=== PATIENT | male | born 1945 | race Caucasian/White ===

== ENCOUNTER → 2016-10-21 | Outpatient (CLI) | payer MEDICARE ==
[2016-10-21 16:01] LABS: BUN 19 mg/dL (7-18); GFR (ESTIMATED) 74 ML/MIN (>60); PROSTATE-SPECIFIC AG SCREEEN 0.6 ng/mL (0.0-4.0)
== END ==
LOC: CARL-LAB 08:02
PROVIDERS: Nurse Practitioner Family
DX: I10 Essential (primary) hypertension (principal); E78.2 Mixed hyperlipidemia; Z12.5 Encounter for screening for malignant neoplasm of prostate
CPT/HCPCS: G0103

== ENCOUNTER 2017-02-11 12:56 | Observation (INO) | payer MEDICARE ==
[~2017-02-11] VITALS: Ht 182.9 cm; Wt 114.8 kg
[2017-02-11 12:57] VITALS: BP 164/87
--- NOTE | 2017-02-11 13:12 | Emergency Room Report ---
See Addendum History of Present Illness Time Seen by 130Landry Presenting Problem in Triage Pt arrived:Walked Presenting Problem:CHEST PAIN BEGAN LAST NIGHT Onset of symptoms date/time:/ or onset unknown for:MEDICAL HX UNKNOWN Treatment Prior to Arrival: DISPLAY MANAGER Provided by: Sepsis Risk Assessment: Temp: 97.9 B/P: 164/87 MAP: 112 Pulse: 70 Resp: 18 Recent fever? N Clinical Suspician of Infection? N Mental Status: 1 - Regular (Normal Baseline) Sepsis Risk:Low Sepsis Risk Have you (or family members/close friends) recently traveled outside the [place]? N If Yes, where/when: Have you had exposure to infectious disease within the past month? N TB? Other? Specify: 8 years old white male with history of seasonal ALLERGY has been experiencing chest discomfort since yesterday. It is worse with movement and coughing. He denies having chest pressure. He denies palpitations. His cough is unproductive. He has no nausea vomiting or diarrhea looks in no acute distress. Was brought by the family for evaluation stating that he has history of hypertension. He underwent negative cardiac workup 20 years ago. Source patient, RN notes reviewed, family Exam Limitations no limitations ALLERGIES Coded Allergies: No Known Allergies (02/11/17) History Medical History General CAD? No Angina: No PA: No Hypertension? Yes Hyperlipidemia? Yes CHF? No DVT? No PE? No COPD? No Asthma? No Anemia? No GERD? No Gastric ulcers? No GI Bleed? No Hernia? No Thyroid Problems? No Hypothyroidism? No CVA? No Seizures? No Diabetes? No End Stage Renal Disease? No UTI? No Stones? No BPH? No GB Disease: No Nephritic Syndrome? No Asplenia? No Hepatitis? No Sickle Cell Disease? No Arthritis? No Migraines? No Cataracts? No Glaucoma? No MRSA? No HIV? No TB? No Anxiety? No Depression? No Cancer? No More? Yes Additional hx: BPH Immunization Hx DT/Tetanus Unknown Surgical Hx Previous Surgery?Y Hernia Repair Social History Smoking Hx Smoker: Former Smoker Tobacco: No Type Cigarettes Alcohol Alcohol: No Review of Systems All Other Systems Reviewed and Negative Constitutional no symptoms reported Eyes no symptoms reported ENT no symptoms reported. Respiratory see HPI, shortness of breath Cardiovascular no symptoms reported, see HPI Gastrointestinal no symptoms reported Genitourinary no symptoms reported. Musculoskeletal no symptoms reported Skin no symptoms reported Psychiatric/Neurological no symptoms reported Physical Exam Vital Signs Vital Signs Date Time Temp Pulse Resp B/P Pulse O2 O2 Flow FiO2 Ox Delivery Rate 02/11 1408 97.9 70 18 125/79 95 02/11 1403 70 18 95 02/11 1257 97.9 70 18 164/87 95 - WBC >12,000 or <4,000 or 10% bands? 2 or more SIRS Criteria Met? B/P:164/87 MAP:112 Creatinine >2.0? UA output<0.5ml/kg/hr for 2 hrs? Platelet count >100,000? Lactate >2.0mmol/1? INR >1.2 or PTT > than 60 sec? Evidence of Organ Dysfunction? Provider documented clinical suspician of infection? N Sepsis Criteria Count: 0 Sepsis Risk: Low Sepsis Risk General Appearance normal appearance, WD/WN, active Eye Exam - bilateral eye normal exam, bilateral eye PERRL, bilateral eye EOMI Ear, Nose, Throat hearing grossly normal, normal ENT inspection Neck normal inspection, non-tender, supple, full range of motion Respiratory Status Yes: trachea midline, chest symmetrical, non tender chest. No: respiratory distress. Lung Sounds bilateral: normal breath sounds, lungs clear. Cardiovascular normal exam, regular rate/rhythm, no peripheral edema, no gallop, no JVD, no murmur, no rub, normal peripheral pulses Gastrointestinal normal bowel sounds, normal exam, non tender, soft, no organomegaly Back normal inspection, no CVA tenderness, no vertebral tenderness Extremities non-tender, normal range of motion, normal inspection Neurologic alert, manufacturing intern II-XII nml as tested, normal exam, oriented x 3 Reflexes Reflexes normal Yes Mental status normal mood/affect Skin intact, normal color, warm/dry Medical Decision Making LABS/Meds/Orders Pt receiving controlled substance in ED? No Results/Orders Laboratory Tests 02/11/17 1507: Troponin I < 0.02 02/11/17 1305: Sodium 134 L, Potassium 3.9, Chloride 98, Carbon Dioxide 30, BUN 22 H, Creatinine 1.0, Estimated Creat Clear 110, Estimated GFR (MDRD) 74, Glucose 128 H, Calcium 8.8, Total Bilirubin 0.4, AST 12 L, ALT 26, Alkaline Phosphatase 89, Creatine Kinase 93, CK-MB (CK-2) Rel Index 0.8, CK and CKMB Interp 0.7, Troponin I < 0.02, B-Natriuretic Peptide 16, Total Protein 7.2, Albumin 3.6, Globulin 3.6 H, Albumin/Globulin Ratio 1.0 L, D-Dimer 105, WBC 7.3, RBC 5.04, Hgb 15.5, Hct 47.1, MCV 93.4, RDW 14.5, Plt Count 213, Gran % 76.9, Gran # 5.6, Lymphocytes % 18.5, Monocytes % 4.6, Lymphocytes # 1.4, Monocytes # 0.3, PUBS MCHC 32.9, MCH 30.8 Current Medication Orders Sig/Nancy Start time Last Medication Dose Route Stop Time Status Admin Multi-Ingredient GI 0 .STK-MED ONE 02/11 1522 DC Drug PO Pantoprazole Sodium 0 .STK-MED ONE 02/11 1522 DC IV Multi-Ingredient GI 60 ML ONCE ONE 02/11 1500 DC 02/11 Drug PO 02/11 1501 1529 Pantoprazole Sodium 40 MG ONCE ONE 02/11 1500 DC 02/11 IV 02/11 1501 1529 Sodium Chloride 10 ML ONCE ONE 02/11 1500 DC IV 02/11 1501 Aspirin 324 MG ONCE ONE 02/11 1330 CAN PO 02/11 1331 Nitroglycerin 0.4 MG ONCE ONE 02/11 1330 DC 02/11 PO 02/11 1331 1334 Nitroglycerin 0 .STK-MED ONE 02/11 1327 DC SL Albuterol/Ipratropium 3 ML ONCE ONE 02/11 1315 DC INH 02/11 1316 Sodium Chloride 10 ML PRN PRN 02/11 1315 AC IV 02/12 1304 Albuterol/Ipratropium 0 .STK-MED ONE 02/11 1313 DC INH Orders Procedure Date/time Status DIET-NOTHING BY MOUTH 02/11 D Active Decision to admit 02/11 1535 Active TROPONIN I 02/[address] HEAD REQ 02/11 1350 Complete RT Aerosol Treatment, Provide 02/11 1319 Active ELECTROCARDIOGRAM REQUEST 02/11 1305 Active RT REQUEST DUONEB 02/11 1305 Active IV SALINE LOCK 02/11 1305 Active D-DIMER 02/11 1305 Complete CBC WITH AUTO DIFF 02/11 1305 Complete CARDIAC ENZYMES 02/11 1305 Complete CHEM 12 PROFILE 02/11 1305 Complete BRAIN NATRIURETIC PEPTIDE 02/11 1305 Complete 12 LEAD EKG-SARAH (INITIAL) 02/[address] HEAD W/O CONTRAST 02/11 UNK Active CM/EKG CM/EKG EKG rate, NSR, rhythm, no evid. of ischemic chgs, no ectopy, normal QRS, normal MA, normal EKG Comments Normal sinus rhythm 70/m normal MA QRS and Q waves no acute findings. Departure Departure Time of Disposition 153 Disposition Still a Patient Clinical Impression Primary Impression: Atypical chest pain Secondary Impressions: Hypertension, Unstable angina Condition STABLE Referrals Garry Smith MD (Family) Additional Instructions i DISCUSSED WITH THE PATIETN ABOUT HIS NEGATIVE LABS BUT HE CONTINUE TO HAVE SX DESPITE OF DUONEB, NITROGLYCERIN AND GI COCKTAIL. i CALLED IRENE DR SMITH SECURITIES COUNSELOR AND WE AGEED TO KEEP HIM FOR R.O AND GB US IN AM. DR. PALM Discharge Counseling Counseled pt/family regarding diagnosis, test results, medications/RX, home care, follow up needs ED Critical Care Critical Care No If Critical Care minutes are documented, the time involved in the performance of seperately reportable procedures was not counted toward critical care time documented. I directly delivered medical care to this critically ill and/or injured patient. Timely evaluation and treatment was necessary to address the significant organ system(s) dysfunction present in this patient. at 1534
[2017-02-11 13:15] LABS: HEMOGLOBIN 15.5 g/dL (14.1-18.0)
[2017-02-11 13:16] LABS: LYMPH # 1.4 K/mm3 (0.7-4.5); LYMPH % 18.5 % (10-50)
[2017-02-11 13:40] LABS: BUN 22 mg/dL (7-18); GFR (ESTIMATED) 74 ML/MIN (>60)
--- NOTE | 2017-02-11 14:04 | RADIOLOGY REPORT PS360 ---
CHEST(2 VIEWS-NOT PORTABLE) HISTORY: Chest pain PAIN ORDERING PHYSICIAN: León Palm MD PATIENT AGE: 71 years COMPARISON: None available FINDINGS: Unremarkable heart size. The right hilum is prominent. Cannot exclude hilar mass. Chest CT with contrast may be of further value.. There is minimal density noted in the left lung base laterally nonspecific and may be due to chronic pleural thickening. No lobar consolidation or collapse is evident. No acute bony anomalies. IMPRESSION: 1. Possible right hilar mass. Suggest chest CT with contrast for further evaluation. 2. Probable chronic changes left lung base.
--- NOTE | 2017-02-11 15:00 | RADIOLOGY REPORT PS360 ---
CT HEAD W/O CONTRAST HISTORY: Facial numbness PAIN ORDERING PHYSICIAN: León Palm MD PATIENT AGE: 71 years COMPARISON: None TECHNIQUE: Axial images obtained without contrast. Brain and bone windows reviewed. FINDINGS: No midline shift, mass effect, intracranial hemorrhage, hydrocephalus, or extra-axial fluid collection is evident. There is some nonspecific hypoattenuation in periventricular white matter consistent with ischemic gliotic change from microvascular disease The calvarium has an unremarkable appearance. No mastoid effusion. The visualized paranasal sinuses are unremarkable. IMPRESSION: NO ACUTE INTRACRANIAL FINDINGS
[2017-02-11 17:32] VITALS: BP 139/86
[2017-02-11 17:47] VITALS: BP 139/86
[2017-02-11] MEDS ORDERED: CLARITIN 10MG T10 MG PO (17:59)
[2017-02-11] MEDS ORDERED: LISINOPRIL/HCTZ1 TA3 FT (17:59)
[2017-02-11] MEDS ORDERED: FLONASE 50 MCG16 GM (18:00)
[2017-02-11] MEDS ORDERED: TAMSULOSIN HYD0.4 MG PO (18:00)
[2017-02-11] MEDS ORDERED: COREG25 MG PO (18:01)
[2017-02-11] MEDS ORDERED: SINGULAIR 10 MG10 MG PO (18:01)
[2017-02-11 20:00] VITALS: BP 140/79
[2017-02-11 20:45] VITALS: BP 140/79
[2017-02-11 23:58] VITALS: BP 136/76
[2017-02-12 04:24] VITALS: BP 129/85
--- NOTE | 2017-02-12 07:41 | PHARMACY CLINIC NOTE ---
Patient Demographics Patient Demographics Admission date: 02/11/17 Date: 02/12/17 Time: 0740 Allergies Coded Allergies: No Known Allergies (02/11/17) HEIGHT- FT: 6 IN: 0.00 K.760 VTE General Information Labs: Laboratory Tests 02/11 1305 Hematology Hgb (14.1 - 18.0 g/dL) 15.5 Hct (42.0 - 52.0 %) 47.1 Plt Count (142 - 424 K/mm3) 213 Disclaimer The following section includes nursing documentation that has been pulled in for pharmacy review. Patient's VTE score: 2 Patient's VTE Risk: VERY LOW RISK Clinical trial participant? No VTE prophylaxis [id number] VTE prophylaxis ordered? Yes Type of prophylaxis/treatment: RENE at 0740
[2017-02-12 08:30] VITALS: BP 159/80
--- NOTE | 2017-02-12 08:38 | CONSULT NOTE ---
See Addendum Standard Demographics Patient Demo Date of Consultation: 02/12/17 Referring Provider: Garry Mcneil MD Reason for Consultation: Chest pain with concern for unstable angina PRIMARY DIAGNOSIS: UNSTABLE ANGINA Problem list Problem list: 1. Hypertension, treated for 20-25 years 2. Family history of heart disease with mother having coronary artery bypass grafting at age 60 and uncles on his mother's having bypass in their late 40s or early 50s. 3. Strong family history of pancreatic cancer in father, brother and sister History of present illness: History of present illness: 71-year-old white male with history of hypertension presented to the emergency department for evaluation of abdominal/chest pain. Symptoms started evening of and were intermittent throughout the night and the next day. At the and granddaughter's insistence, patient came in for evaluation. Symptoms described as a substernal discomfort in the lower part of the sternum without radiation to back, neck or shoulder that is aggravated by cough, sneezing and movement. Mild improvement with nitroglycerin sublingual. Troponins normal 3 overnight. Electrocardiogram is sinus with nonspecific ST-T wave abnormalities. Cardiology consulted for evaluation and recommendations. Past Medical History: General: Hypertension Yes CVA No Seizures No TB No COPD No Asthma No Diabetes No Angina No OH No Hyperlipidemia No Cancer No MRSA No GB Disease No Additional hx BPH Past Surgical HX: Previous Surgery?Y Hernia Repair Allergies Coded Allergies: No Known Allergies (02/11/17) Home medications: Reported Medications Loratadine (Claritin 10MG) 10 MG PO DAILY Lisinopril & Hctz (Lisinopril-Hctz 10-12.5 MG Tab) 1 TAB FT DAILY Fluticasone Propionate (Flonase 50 Mcg Nasal [place]) 1 SPRAY NA BID TAMSULOSIN HCL (Tamsulosin 0.4MG) 0.4 MG PO QHS Carvedilol (Coreg 25MG) 25 MG PO BID Montelukast Sodium (Singulair 10MG) 10 MG PO DAILY Current Medications: Current Medications Acetaminophen 0 .STK-MED ONE PO (DC) Acetaminophen 650 MG Q4HP PRN PO Pantoprazole Sodium 40 MG QHS IV Nitroglycerin 0 .STK-MED ONE .ROUTE (DC) Enoxaparin Sodium 0 .STK-MED ONE SC (DC) Nitroglycerin 0.5 IN Q6 TP Sodium Chloride 10 ML PRN PRN IV Aspirin 325 MG DAILY PO Enoxaparin Sodium 40 MG DAILY SC Multi-Ingredient GI Drug 0 .STK-MED ONE PO (DC) Pantoprazole Sodium 0 .STK-MED ONE IV (DC) Multi-Ingredient GI Drug 60 ML ONCE ONE PO (DC) Pantoprazole Sodium 40 MG ONCE ONE IV (DC) Sodium Chloride 10 ML ONCE ONE IV (DC) Aspirin 324 MG ONCE ONE PO (CAN) Nitroglycerin 0.4 MG ONCE ONE PO (DC) Nitroglycerin 0 .STK-MED ONE SL (DC) Albuterol/Ipratropium 3 ML ONCE ONE INH (DC) Sodium Chloride 10 ML PRN PRN IV Albuterol/Ipratropium 0 .STK-MED ONE INH (DC) Immunization HX DT/Tetanus Unknown Pneumonia RECEIVED IN PAST TB Test in last year No Family history Family HX Family Hx Insignificant No Social Hx: Smoking HX Tobacco No Type Cigarettes Packs/day N/A Are you/the child exposed to second-hand smoke: No Alcohol Alcohol: No Hx of Drug Use Drug Use? No Patien't marital status is Patient's support system is good Review of systems: Constitutional No: no symptoms reported. Respiratory No: no symptoms reported. Cardiovascular see HPI, chest pain Gastrointestinal/Abdominal No no symptoms reported Genitourinary frequency. Musculoskeletal No: no symptoms reported. Neurological No: no symptoms reported. Exam: Admission Vital Signs: 1ST Vital Signs Result Date Time Pulse Ox 95 02/11 1257 B/P 164/87 02/11 1257 Temp 97.9 02/11 1257 Pulse 70 02/11 1257 Resp 18 02/11 1257 O2 Delivery ROOM AIR 02/11 1732 Last Vital Signs: Vital Signs Result Date Time Pulse Ox 92 02/13 424 B/P 129/85 02/13 424 O2 Delivery ROOM AIR 02/13 424 Temp 98.0 02/13 424 Pulse 68 02/13 424 Resp 18 02/13 424 Exam General appearance: alert, awake, no acute distress Neck: no carotid bruit, no JVD Cardiovascular: regular rate & rhythm, no murmur Respiratory: clear to auscultation, good air movement ABD: soft, no tenderness Extremities: moves all, no peripheral edema Neuro: alert, intact, oriented Laboratory data: Laboratory Tests 02/11/17 2103: Troponin I < 0.02 02/11/17 1507: Troponin I < 0.02 02/11/17 1305: Sodium 134 L, Potassium 3.9, Chloride 98, Carbon Dioxide 30, BUN 22 H, Creatinine 1.0, Estimated Creat Clear 110, Estimated GFR (MDRD) 74, Glucose 128 H, Calcium 8.8, Total Bilirubin 0.4, AST 12 L, ALT 26, Alkaline Phosphatase 89, Creatine Kinase 93, CK-MB (CK-2) Rel Index 0.8, CK and CKMB Interp 0.7, Troponin I < 0.02, B-Natriuretic Peptide 16, Total Protein 7.2, Albumin 3.6, Globulin 3.6 H, Albumin/Globulin Ratio 1.0 L, D-Dimer 105, WBC 7.3, RBC 5.04, Hgb 15.5, Hct 47.1, MCV 93.4, RDW 14.5, Plt Count 213, Gran % 76.9, Gran # 5.6, Lymphocytes % 18.5, Monocytes % 4.6, Lymphocytes # 1.4, Monocytes # 0.3, PUBS MCHC 32.9, MCH 30.8 Plan: Assessment: 1. Chest pain with atypical features. Patient does have risk factors including hypertension, family history and male over the age of 40. Troponins normal 3, electrocardiogram sinus and unremarkable. Would recommend obtaining an echocardiogram today to evaluate for LEFT ventricular size and function. If normal, then patient could be discharged home for outpatient stress test. 2. Hypertension Recommendations: See above. at 1420
--- NOTE | 2017-02-12 11:08 | RADIOLOGY REPORT PS360 ---
US GALLBLADDER (ABD LTD) COMPARISON: None HISTORY: Chest pain and epigastric pain TECHNIQUE: Targeted ultrasound right upper quadrant FINDINGS: The liver is normal size and show scattered areas of increased echogenicity consistent with fatty infiltration. The pancreas is grossly normal. The gallbladder is normal in size and shows no definite gallstones or biliary sludge. The common bile duct is normal caliber. The right kidney measures 10.5 x 6.0 x 6.4 cm and shows a good cortical medullary junction with no hydronephrosis or other abnormality. IMPRESSION: Scattered areas of fatty liver otherwise unremarkable study
[2017-02-12 12:00] VITALS: BP 153/79
[2017-02-12] MEDS ORDERED: THE MEDICINE SH20 M1 PO (13:32)
--- NOTE | 2017-02-12 13:37 | Discharge Summary Standard ---
Demographics: Admit date: 02/11/17 Chief complaint: Abdominal/epigastric pain PRIMARY DIAGNOSIS: UNSTABLE ANGINA Allergies: Coded Allergies: No Known Allergies (02/11/17) History of present illness: History of present illness: 71-year-old white male with history of hypertension presented to the emergency department for evaluation of abdominal/chest pain. Symptoms started evening of and were intermittent throughout the night and the next day. At the and granddaughter's insistence, patient came in for evaluation. Symptoms described as a substernal discomfort in the lower part of the sternum without radiation to back, neck or shoulder that is aggravated by cough, sneezing and movement. Mild improvement with nitroglycerin sublingual. Troponins normal 3 overnight. Electrocardiogram is sinus with nonspecific ST-T wave abnormalities. Cardiology consulted for evaluation and recommendations. Patient noted that symptoms were related to food. CT scans in ER unremarkable the Past medical history: Family HX Family Hx Insignificant Yes Immunization HX DT/Tetanus Unknown Pneumonia Received In Past TB Test in last year No General CAD? No Angina: No ME: No Hypertension? Yes Hyperlipidemia? No CHF? No DVT? No PE? No COPD? No Asthma? No Anemia? No GERD? No Gastric ulcers? No GI Bleed? No Hernia? No Thyroid Problems? No Hypothyroidism? No CVA? No Seizures? No Diabetes? No UTI? No Stones? No BPH? Yes GB Disease: No Nephritic Syndrome? No Asplenia? No Hepatitis? No Sickle Cell Disease? No Arthritis? No Migraines? No Cataracts? No Glaucoma? No MRSA? No HIV? No TB? No Anxiety? No Depression? No Cancer? No More? Yes Additional hx: BPH Past Surgical HX Previous Surgery?Y Hernia Repair Current home meds: Reported Medications Loratadine (Claritin 10MG) 10 MG PO DAILY Lisinopril & Hctz (Lisinopril-Hctz 10-12.5 MG Tab) 1 TAB FT DAILY Fluticasone Propionate (Flonase 50 Mcg Nasal [place]) 1 SPRAY NA BID TAMSULOSIN HCL (Tamsulosin 0.4MG) 0.4 MG PO QHS Carvedilol (Coreg 25MG) 25 MG PO BID Montelukast Sodium (Singulair 10MG) 10 MG PO DAILY Social Hx: Smoking HX Tobacco No Type Cigarettes Packs/day N/A Are you/the child exposed to second-hand smoke: No Alcohol Alcohol: No Hx of Drug Use Drug Use? No Patien't marital status is Patient's support system is excellent Review of systems: Constitutional malaise, weakness. No: fever. Respiratory No: no symptoms reported. Cardiovascular see HPI Gastrointestinal/Abdominal see HPI Genitourinary No: no symptoms reported. Musculoskeletal No: no symptoms reported. Neurological No: see HPI. Exam: Lab data for last 24 hours: Laboratory Tests 02/11/17 2103: Troponin I < 0.02 02/11/17 1507: Troponin I < 0.02 Admission vital signs: 1ST Vital Signs Result Date Time Pulse Ox 95 02/11 1257 B/P 164/87 02/11 1257 Temp 97.9 02/11 1257 Pulse 70 02/11 1257 Resp 18 02/11 1257 O2 Delivery ROOM AIR 02/11 1732 Exam General appearance: normal appearance, alert, awake Eyes: normal exam, anicteric ENT: normal exam, mucous membranes moist Neck: normal inspection, non-tender, no carotid bruit, no JVD Cardiovascular: normal exam Respiratory: normal exam, clear to auscultation ABD: normal exam, non-distended, normal bowel sounds Genitourinary: normal voiding & quantity Extremities: normal exam Musculoskeletal: normal exam Skin: normal exam, intact, normal color Neuro: normal exam, alert, no deficit Hospital Course Hospital Course: Patient was admitted, myocardial infarction was ruled out by enzyme and EKG criteria. He is noted to have a baseline abnormal EKG with left axis deviation and poor R-wave progression. Because of the right upper quadrant tenderness on the initial exam in the ER ultrasound was ordered of the gallbladder which was unremarkable. Patient has felt well through the day today, echocardiogram has been reviewed and preliminary reports are not concerning for LV dysfunction. Plan to discharge him home. Outpatient stress test set up. Start proton pump inhibitor for the epigastric pain. Close followup as scheduled in my office. Medications Medications: Discharge meds are as noted. Follow up Follow up in office in: 10 DAYS with: Garry Mcneil MD at [id number]
[2017-02-12 14:20] VITALS: BP 153/79
--- NOTE | 2017-02-12 15:38 | RADIOLOGY REPORT PS360 ---
PROCEDURE: 2-D M-mode and color Doppler study INDICATIONS FOR THE TEST: Chest pain X COPD Heart Murmur Tobacco Smoking Palpitations Fatigue Syncope Edema HypertensionXDiabetes Mellitus Rheumatic Fever SOB MORAN Obesity Hyperlipidemia Family History HD Additional History PATIENT INFORMATION HEIGHT: 72 WEIGHT:253 GENDER: Male B/P:164/87 2-D/M-MODE INTERPRETATION: 2-D MEASUREMENTS OBSERVED VALUES IN CMS Right Ventricular Dimension (RVDd) 3.3 Interventricular Septum (Thickness)(IVsd) 1.2 Left Ventricular Internal Dimensions(LVIDd) 5.0 Left Ventricular Posterior Wall (Thickness)(LVPWd) 1.2 Aortic Root 3.7 Aortic Cusp Separation 2.0 Left Atrial Dimensions (LAD) 3.8 2D 1. Left atrium is mildly enlarged, left ventricle is normal size, visually estimated ejection fraction 55% with no obvious regional wall motion abnormality, endocardial surfaces are somewhat poorly visualized, there is mild concentric left ventricular hypertrophy present. 2. The right atrium and right ventricle are mildly enlarged with normal contractility. 3. The aortic valve is minimally thickened and calcified. 4. The mitral and tricuspid valve leaflets are minimally thickened. 5. The pulmonic valve is poorly visualized. 3. No significant pericardial effusion noted. DOPPLER INTERROGATION: Doppler interrogation of the aortic, mitral and tricuspid valvular presence of mild mitral and tricuspid regurgitation, mild aortic insufficiency also seen. Calculated right ventricular systolic pressure 49 mmHg consistent with moderate pulmonary hypertension, grade 1 diastolic dysfunction seen without tissue Doppler evidence of raised left atrial pressure. CONCLUSION: 1. Mildly enlarged left atrium, normal left ventricular size, visually estimated ejection fraction 55% with no obvious regional wall motion abnormality, mild concentric left ventricular hypertrophy seen, endocardial surfaces are somewhat poorly visualized, grade 1 diastolic dysfunction seen without tissue Doppler evidence of raised left atrial pressure. 2. Mild aortic, mild mitral and tricuspid regurgitation. 3. No significant pericardial effusion noted.
--- OUTSIDE RECORDS SUMMARY | 2017-03-09 07:37 | External Medical Summary Rpt ---
Author Author EVY Address Unknown Phone [email or web address] Purpose Continuity of Care Document - 10-21-2016 through 2016 Problems Code Diagnosis DOS Provider Status I10 ESSENTIAL (PRIMARY) HYPERTENSIO N I20.0 UNSTABLE ANGINA R07.89 OTHER CHEST PAIN
--- OUTSIDE RECORDS SUMMARY | 2017-03-09 07:37 | External Medical Summary Rpt ---
Demographics Preferred Language Portuguese Marital Status Unknown Buddhist Affiliation Unknown Race Unknown Ethnic Group Unknown Author EVY Mohan Address Unknown Phone Immunization No patient found.
--- OUTSIDE RECORDS SUMMARY | 2017-03-09 07:37 | External Medical Summary Rpt ---
Author Author [employer] Organization [employer] Address Unknown Phone Unavailable Purpose Continuity of Care Document - through 2016
--- OUTSIDE RECORDS SUMMARY | 2017-03-09 07:37 | External Medical Summary Rpt ---
Author Author [facility] Magallanes, [employer] Organization [employer] Address Unknown Phone Unavailable Results Fibrin D-dimer FEU [Mass/volume] in Platelet poor plasma Observa Value Referen Units Interpr Notes Date tion ce etation Range Fibrin 0 - 400 ng/mL Normal The Sep 14 D-dimer D-Dimer 2017 1:05 FEU values PM [Mass/vol are ume] in presented Platelet in units poor of plasma mass(ng/m L) ofD-Dimer units(DDU ).This test has been FDA approved as an aid in the assessmen tand evaluatio n of suspected DIC, and thromboem bolic eventsinc luding PE and DVT. However, it does not have approvalf or cut-off values for the exclusion of these condition s. CBC W Auto Differential panel in Blood Observa Value Referen Units Interpr Notes Date tion ce etation Range Granulocy 1.3 - 8.0 K/mm3 Normal No Sep 14 jorje informati 2017 1:05 [#/volume on in PM ] in source Blood by data Automated count Granulocy 37.0 - % Normal No Sep 14 jorje/100 80.0 informati 2017 1:05 leukocyte on in PM s in source Blood by data Automated count Hematocri 42.0 - % Normal No Sep 14 t [Volume 52.0 informati 2017 1:05 on in PM Fraction] source of Blood data Hemoglobi 14.1 - g/dL Normal No Sep 14 n 18.0 informati 2017 1:05 [Mass/vol on in PM ume] in source Blood data Lymphocyt 0.7 - 4.5 K/mm3 Normal No Sep 14 es informati 2017 1:05 [#/volume on in PM ] in source Unspecifi data ed specimen by Automated count Lymphocyt 10 - 50 % Normal No Sep 14 es informati 2017 1:05 [#/volume on in PM ] in source Unspecifi data ed specimen by Automated count Erythrocy 27 - 31.2 pg Normal No Sep 14 te mean informati 2017 1:05 corpuscul on in PM ar source hemoglobi data n [Entitic mass] Erythrocy 31.8 - g/dl Normal No Sep 14 te mean 35.4 informati 2016 1:05 corpuscul on in PM ar source hemoglobi data n concentra tion [Mass/vol ume] by Automated count Erythrocy 82.2 - fL Normal No Sep 14 te mean 97.8 informati 2016 1:05 corpuscul on in PM ar volume source [Entitic data volume] by Automated count Monocytes 0.1 - 1.0 K/mm3 Normal No Sep 14 informati 2016 1:05 [#/volume on in PM ] in source Blood by data Automated count Monocytes 1.7 - 9.3 % Normal No Sep 14 /100 informati 2016 1:05 leukocyte on in PM s in source Blood by data Automated count Platelets 142 - 424 K/mm3 Normal No Sep 14 inform2016 1:05 [#/volume on in PM ] in source Blood data Erythrocy 4.6 - 6.2 M/mm3 Normal No Sep 14 jorje informati 2016 1:05 [#/volume on in PM ] in source Amniotic data fluid Erythrocy 11.5 - % Normal No Sep 14 te 17.5 informati 2016 1:05 distribut on in PM ion width source [Entitic data volume] by Automated count Leukocyte 4.8 - K/mm3 Normal No Sep 14 s 10.8 informati 2016 1:05 [#/volume on in PM ] in source Blood data Comprehensive metabolic 2000 panel in Serum or Plasma Observa Value Referen Units Interpr Notes Date tion ce etation Range Albumin/G 1.1 - 1.8 No Normal No October 21 lobulin informati informati 2016 8:05 [Mass on in on in AM ratio] in source source Serum or data data Plasma Albumin 3.4 - 5.0 gm/dL Normal No October 21 [Mass/vol informati 2016 8:05 ume] in on in AM Serum or source Plasma data Alkaline 46 - 116 U/L Normal No October 21 phosphata informati 2016 8:05 se on in AM [Enzymati source c data activity/ volume] in Serum or Plasma Bilirubin 0.2 - 1.0 mg/dL Normal No October 21 .total informati 2016 8:05 [Mass/vol on in AM ume] in source Serum or data Plasma Urea 7 - 18 mg/dL High No October 21 nitrogen informati 2016 8:05 [Mass/vol on in AM ume] in source Serum or data Plasma Calcium 8.5 - mg/dL Normal No October 21 [Mass/vol 10.1 informati 2016 8:05 ume] in on in AM Serum or source Plasma data Chloride 98 - 107 mmoL/L Normal No October 21 [Moles/vo informati 2016 8:05 lume] in on in AM Serum or source Plasma data Carbon 21.0 - mmoL/L Normal No October 21 dioxide, 32.0 informati 2016 8:05 total on in AM [Moles/vo source lume] in data Serum or Plasma Creatinin 0.70 - mg/dL Normal No October 21 e 1.30 informati 2016 8:05 [Mass/vol on in AM ume] in source Serum or data Plasma Estimated >60 ML/MIN No REFERENCE October 21 informati RANGE: 2017 8:05 glomerula on in >60 AM r source ML/MIN/1. filtratio data 73 SQUARE n rate METERSIf (GF this patient is -A merican, then multiply theresult by 1.210. Globulin 1.3 - 3.2 gm/dL High No October 21 [Mass/vol informati 2016 8:05 ume] in on in AM Serum source data Glucose 74 - 106 mg/dL High No October 21 [Mass/vol informati 2016 8:05 ume] in on in AM Serum or source Plasma data Potassium 3.5 - 5.1 mmoL/L Normal October 21 informati 2016 8:05 [Moles/vo on in AM lume] in source Serum or data Plasma Sodium 136 - 145 mmoL/L Normal No October 21 [Moles/vo informati 2016 8:05 lume] in on in AM Serum or source Plasma data Aspartate 15 - 37 U/L Normal No October 21 informati 2016 8:05 aminotran on in AM sferase source [Enzymati data c activity/ volume] in Serum or Plasma Alanine 12 - 78 U/L Normal No October 21 aminotran informati 2016 8:05 sferase on in AM [Enzymati source c data activity/ volume] in Serum or Plasma Protein 6.4 - 8.2 gm/dL Normal No October 21 [Mass/vol informati 2016 8:05 ume] in on in AM Serum or source Plasma data Lipid 1996 panel in Serum or Plasma Observa Value Referen Units Interpr Notes Date tion ce etation Range Cholester < 200 mg/dL No No October 21 ol informati informati 2016 8:05 [Moles/vo on in on in AM lume] in source source Unspecifi data data ed specimen Cholester 40 - 60 MG/DL Normal No October 21 ol in HDL informati 2016 8:05 on in AM [Mass/vol source ume] in data Serum or Plasma Cholester 0 - 130 mg/dL Normal No October 21 ol in LDL informati 2016 8:05 on in AM [Mass/vol source ume] in data Serum or Plasma by calculati on Triglycer 30 - 200 mg/dL Normal No October 21 meme informati 2016 8:05 [Moles/vo on in AM lume] in source Serum or data Plasma Cholester 0 - 40 No Normal No October 21 ol in informati informati 2016 8:05 VLDL on in on in AM [Mass/vol source source ume] in data data Serum or Plasma Prostate specific Ag [Mass/volume] in Cerebral spinal fluid Observa Value Referen Units Interpr Notes Date tion ce etation Range Prostate 0.0 - 4.0 ng/mL Normal No October 21 specific informati 2016 8:05 Ag on in AM [Mass/vol source ume] in data Cerebral spinal fluid
--- OUTSIDE RECORDS SUMMARY | 2017-03-09 07:37 | External Medical Summary Rpt ---
Author Author [facility] Address Unknown Phone [email or web address] Purpose Continuity of Care Document - 10-21-2016 through 2016 Problems Code Diagnosis DOS Provider Status I10 ESSENTIAL (PRIMARY) HYPERTENSIO N I20.0 UNSTABLE ANGINA R07.89 OTHER CHEST PAIN
--- OUTSIDE RECORDS SUMMARY | 2017-03-09 07:37 | External Medical Summary Rpt ---
Demographics Preferred Language Uzbek Marital Status Unknown Muslim Affiliation Unknown Race Unknown Ethnic Group Unknown Author [facility] Mohan Address Unknown Phone Immunization No patient found.
== END 2017-02-12 14:20 | disposition home or self-care (01) ==
LOC: ER 12:56 → 2ND 15:35
PROVIDERS: Emergency Medicine
DX: R07.9 Chest pain, unspecified (principal); R94.31 Abnormal electrocardiogram [ECG] [EKG]; R10.13 Epigastric pain; I10 Essential (primary) hypertension; I27.2 Other secondary pulmonary hypertension; Z79.899 Other long term (current) drug therapy; Z82.49 Family history of ischemic heart disease and other diseases of the circulatory system; Z80.0 Family history of malignant neoplasm of digestive organs; Z79.51 Long term (current) use of inhaled steroids
CPT/HCPCS: G0378

== ENCOUNTER → 2017-02-23 | Outpatient (CLI) | payer MEDICARE ==
--- NOTE | 2017-02-25 14:14 | RADIOLOGY REPORT PS360 ---
History and Indications: Obesity, hypertension, family history, chest pain, and fatigue Procedure: Patient received a 0.4 mg of Lexiscan, resting heart rate was 60 bpm resting blood pressure 154/82, with Lexiscan maximum heart rate achieved was 84 bpm which is less than 85% of the maximum predicted heart rate and a blood pressure was 114/64. With Lexiscan patient complained of shortness of breath. Electrocardiogram: Resting electrocardiogram showed sinus rhythm, with Lexiscan there is.75mm ST segment depression noted from the baseline EKG. The EKG portion of the Lexiscan is borderline for ischemia. Cardiac stress and resting SPECT images: Cardiac stress and the suspect images were obtained using technetium 99 Myoview 10.9 mCi at rest and 30.0 mCi at stress, gated SPECT further analysis of segmental wall motion and calculation of the ejection fraction also done. Cardiac stress and rest images show uniform myocardial activity without any segmental perfusion abnormality, computer derived ejection fraction is over 65% no obvious regional wall motion abnormality, right ventricle is normal size and contractility. Conclusion: 1. The EKG portion of the Lexiscan Myoview is borderline for ischemia. 2. No obvious scintigraphic evidence of reversible ischemia seen, computer derived ejection fraction is over 65% with no obvious regional wall motion abnormality, right ventricle is normal size and contractility.
== END ==
LOC: RAD 02-18 06:00
DX: I20.8 Other forms of angina pectoris (principal)